=== PATIENT | male | born 1995 ===

== ENCOUNTER 2017-11-16 20:30 | Emergency (ER) | payer MEDICAID ==
[~2017-11-16] VITALS: Ht 182.9 cm; Wt 63.5 kg
--- NOTE | 2017-11-16 20:35 | NUR ---
Dr. Linares at bedside for MSE.
[2017-11-16] MEDS ORDERED: IV NORMAL SALINE 1000 ML BAG IV ONE (20:45)
[2017-11-16] MEDS ORDERED: TDAP DIPH,PERTUSS,TET VAC/PF 0.5 ML DISP.SYRIN IM ONE ×2 (20:45→21:08)
--- NOTE | 2017-11-16 20:59 | NUR ---
Xray at bedside.
[2017-11-16] MEDS ORDERED: NEOMY/BACITRA/POLYMYXIN B OINT UD PACKET TP ONE ×2 (21:00→21:07)
[2017-11-16 21:04] LABS: BASOPHILS # (AUTO) 0.1 K/uL (0.0-8.0); BASOPHILS % (AUTO) 1.3 % (0.0-2.0); EOSINOPHILS # (AUTO) 0.1 K/uL (0.0-0.7); EOSINOPHILS % (AUTO) 1.6 % (0.0-7.0); HEMATOCRIT 44.3 % (36.7-47.1); HEMOGLOBIN 15.5 g/dL (12.5-16.3); LYMPHOCYTES # (AUTO) 2.3 K/uL (20.0-40.0); LYMPHOCYTES % (AUTO) 39.2 % (20.5-74.5); MEAN CORPUSCULAR HGB CONC 35 g/dL (32.5-36.3); MEAN CORPUSCULAR VOLUME 88.6 fL (73.0-96.2); MONOCYTES # (AUTO) 0.6 K/uL (2.0-10.0); MONOCYTES % (AUTO) 10.4 % (0-11); NEUTROPHILS # (AUTO) 2.8 K/uL (1.8-8.9); NEUTROPHILS % (AUTO) 47.5 % (31.5-64.5); PLATELET COUNT (AUTO) 207 K/uL (152-348); WHITE BLOOD COUNT (AUTO) 5.8 K/uL (3.6-10.2)
[2017-11-16 21:10] LABS: CREATININE 1.2 mg/dL (0.6-1.3); POTASSIUM 4.1 mmol/L (3.5-5.1)
[2017-11-16 21:15] LABS: ETHANOL < 3 MG/DL (0-0)
--- NOTE | 2017-11-16 21:29 | NUR ---
Pt provided urine sample, sent to lab.
[2017-11-16 21:52] LABS: *AMPHETAMINE, URINE NEGATIVE (NEGATIVE); *BARBITURATE, URINE NEGATIVE (NEGATIVE); *CANNABINOID, URINE POSITIVE (NEGATIVE); *COCCAINE, URINE NEGATIVE (NEGATIVE); *OPIATE, URINE NEGATIVE (NEGATIVE); *PHENCYCLIDINE SCREEN,URINE NEGATIVE (NEGATIVE)
--- NOTE | 2017-11-16 22:23 | NUR ---
Patient discharged to home in stable conditon. Written and verbal after care instructions given. Patient verbalizes understanding of instructions. Pt ambulated out of ER with steady gait, no acute signs of distress, VSS, all belongings taken.
[2017-11-16 22:28] VITALS: BP 112/70
== END 2017-11-16 22:34 | disposition home or self-care (01) ==
LOC: ER 20:33
DX: F19.10 Other psychoactive substance abuse, uncomplicated (principal); Z88.2 Allergy status to sulfonamides; Z59.0 Homelessness
CPT/HCPCS: 36415; 71045; 80307; 85025; 90715; 93005; A4663; G0480; J7030